=== PATIENT | female | born 1975 | race Caucasian/White ===

== ENCOUNTER 2023-03-23 07:45 | Outpatient (RCR) | payer BC, SELFPAY | END 2023-06-26 14:50 | disposition home or self-care (01) | PROVIDERS: PCP Urology; Visit Provider Family Medicine | DX: M79.18 Myalgia, other site (principal); M51.34 Other intervertebral disc degeneration, thoracic region; Z51.89 Encounter for other specified aftercare | CPT/HCPCS: 97110; 97140; 97162 ==